=== PATIENT | male | born 1990 | race Two or more races ===

== ENCOUNTER 2021-01-04 11:39 | Emergency (ER) | payer BC ==
[~2021-01-04] VITALS: Ht 180.3 cm; Wt 88.5 kg
[2021-01-04] MEDS ORDERED: KETO10TA2 PO (14:04)
[2021-01-04] MEDS ORDERED: AMOX-CLAV 875-1 EACH PO (14:04)
== END 2021-01-04 14:48 | disposition home or self-care (01) ==
LOC: ER 11:39
DX: J03.90 Acute tonsillitis, unspecified (principal)